=== PATIENT | male | born 1970 | race Two or more races ===

== ENCOUNTER → 2016-10-13 | Outpatient (CLI) | payer BC ==
[~2016-10-13] VITALS: Ht 175.3 cm; Wt 84.8 kg
[~2016-10-13] MED LIST: CYCLOBENZAPRINE5 MG ORAL; GLUCOPHAGE1000 MG ORAL; LOSARTAN POTAS100 MG ORAL; NORVASC10 MG ORAL; PAXIL CR37.5 MG ORAL; PRILOSEC OTC20 MG ORAL; TRAZODONE HCL300 MG ORAL
--- NOTE | 2016-10-13 14:15 | GI Initial Consult Note ---
History of Present Illness General Date patient seen: October 13, 2016 Time patient seen: 13:58 Reason for Consultation: CONSTIPATION Present Illness HPI 46 year old male presents today with new onset constipation x 2 months. States he takes Metamucil BID with minimal relief. In addition, the patient c/ o of blood stool. 25+ lbs intentional weight loss. Home Meds Reported Medications Trazodone Hcl (TRAZODONE HCL) Unknown Strength Tablet, ORAL BEDTIME Y, TAB 10/13/16 Cyclobenzaprine Hcl (CYCLOBENZAPRINE HCL) Unknown Strength Tablet, ORAL THREE TIMES A DAY, TAB 10/13/16 Omeprazole Magnesium (PRILOSEC OTC) Unknown Strength Tablet.dr, ORAL DAILY, TAB 10/13/16 Paroxetine Hcl (PAXIL CR) Unknown Strength Tab.er.24h, ORAL DAILY Y, #30 TAB 0 Refills 10/13/16 Amlodipine Besylate (Norvasc) Unknown Strength Tablet, ORAL DAILY, TAB 10/13/16 Losartan Potassium (LOSARTAN POTASSIUM) 100 Mg Tablet, 100 MG ORAL DAILY, TAB 10/13/16 Metformin Hcl (GLUCOPHAGE) Unknown Strength Tablet, ORAL DAILY, TAB 10/13/16 Med list reviewed/reconciled: Yes Allergies: Coded Allergies: No Known Allergies (Unverified , 10/13/16) Patient History History Provided By: Patient PMH Narrative GERD HTN Depression Sleep Disorder Hx of Gastric Ulcer since age 12 PSHx Back surgery 4-5 years ago Family History Narrative Father - heart disease Mother - DM, HTN, Ulcers Social History: Reports: alcohol use - quit 16 years ago, smoking - 1 pack daily x 30 years Review of Systems All Other Systems: negative except mentioned in HPI Physical Exam T 97.5 BP 131/68 P 71 94 RA HT 5'10 WT 187.6 lbs General Appearance: well appearing, no apparent distress, alert Head: normocephalic EENT: PERRL/EOMI, normal ENT inspection Neck: normal inspection, full range of motion, supple Respiratory: normal breath sounds, no respiratory distress Cardiovascular: normal rate Gastrointestinal: normal inspection, non tender, soft, normal bowel sounds Genitourinary: normal inspection, no CVA tenderness Musculoskeletal: normal inspection, back normal Neurologic: normal inspection, alert, oriented x3, responsive Psychiatric: normal inspection, judgement/insight normal, memory normal Skin: normal inspection, normal color, no rash, warm/dry Lymphatic: normal inspection, no adenopathy GI: Plan Problems: (1) GERD (gastroesophageal reflux disease) (2) Hx of gastric ulcer (3) HTN (hypertension) (4) Depression (5) Sleep disorder (6) Constipation Plan pt requires colonoscopy to evaluate new onset constipation/bloody stools and EGD / given hx of gastric ulcer. - will order breath test to r/o H. Pylori given history of . will schedule patient pending prior authorization Seen with Dr. Mcclure. Thank you for referring this patient. Maureen Griffiths N.P. October 13, 2016 14:15
[2016-10-13 15:44] VITALS: BP 131/68
== END | disposition home or self-care (01) ==
LOC: PAN 13:09
DX: K21.9 Gastro-esophageal reflux disease without esophagitis (principal); I10 Essential (primary) hypertension; K59.00 Constipation, unspecified; F33.9 Major depressive disorder, recurrent, unspecified; E11.9 Type 2 diabetes mellitus without complications; Z82.49 Family history of ischemic heart disease and other diseases of the circulatory system; F17.210 Nicotine dependence, cigarettes, uncomplicated; G47.9 Sleep disorder, unspecified
CPT/HCPCS: 99201

== ENCOUNTER 2017-01-12 08:10 | Day surgery (SDC) | payer BC ==
[2017-01-12] VITALS (8 sets, daily range): BP systolic 106–136; BP diastolic 64–79
[~2017-01-12] VITALS: Ht 175.3 cm; Wt 83.9 kg
--- NOTE | 2017-01-12 06:08 | Anethesia Preoperative Eval ---
Anesthesia Pre-op PMH/ROS General Date of Evaluation: Jan 12, 2017 Time of Evaluation: 06:06 Anesthesiologist: juan jose ASA Score: ASA 3 Mallampati Score Class I : Soft palate, uvula, fauces, pillars visible Class II: Soft palate, uvula, fauces visible Class III: Soft palate, base of uvula visible Class IV: Only hard plate visible Mallampati Classification: Class II Surgeon: ernie Diagnosis: gerd, constipation Surgical Procedure: egd/colonoscopy Anesthesia History: none Social History: current smoker Family History: no anesthesia problems Allergies: Coded Allergies: No Known Allergies (Unverified , 10/13/16) Medications: see eMAR Past Medical History Cardiovascular: Reports: HTN Gastrointestinal/Genitourinary: Reports: GERD, other - gi bleed Neurologic/Psychiatric: Reports: depression/anxiety Musculoskeletal/Integumentary: Reports: other - back pain Other: obesity Anesthesia Pre-op Phys. Exam Physician Exam Constitutional: NAD Neurologic: CN 2-12 intact Cardiovascular: RRR Respiratory: CTA Gastrointestinal: S/NT/ND Airway Exam Mallampati Score: Class II MO: full Neck: supple TMD: 2fb ROM: full Teeth: intact Anesthesia Pre-op A/P Studies Pre-op Studies: EKG - sinus bradycardia Risk Assessment & Plan Assessment: asa3 Plan: mac Status Change Before Surgery: No Pre-Antibiotics Drug: JONAS Harrison Jan 12, 2017 06:08
[2017-01-12] MEDS ORDERED: LOSARTAN POTAS100 MG ORAL (08:36)
[2017-01-12] MEDS ORDERED: PAXIL CR12.5 MG ORAL (08:36)
[2017-01-12] MEDS ORDERED: OMEPRAZOLE20 M2 ORAL (08:36)
[2017-01-12] MEDS ORDERED: TRAZODONE HCL100 MG ORAL (08:36)
[2017-01-12] MEDS ORDERED: NORCO 5-325 TA1 EACH ORAL (08:36)
[2017-01-12] MEDS ORDERED: METFORMIN HCL850 M1 ORAL (08:36)
[2017-01-12] MEDS ORDERED: AMLODIPINE BESY10 MG ORAL (08:36)
--- NOTE | 2017-01-12 09:12 | Pre-Procedure Note/Attestation ---
Pre-Procedure Note/Attestation Complete Prior to Procedure Planned Procedure: not applicable Procedure Narrative: EGD and colonoscopy Indications for Procedure Pre-Operative Diagnosis: gerd, abd pain, anemia Attestation I attest that I discussed the nature of the procedure; its benefits; risks and complications; and alternatives (and the risks and benefits of such alternatives ), prior to the procedure, with the patient (or the patient's legal guest services representative). I attest that, if there was a reasonable possibility of needing a blood transfusion, the patient (or the patient's legal guest services representative) was given the [facility] standardized written summary, pursuant to the Kenn Jorge Luis Blood Safety Act ([place] Health and Safety Code # 1645, as amended). I attest that I re-evaluated the patient just prior to the surgery and that there has been no change in the patient's H&P, except as documented below: ATUL ALEGRIA Jan 12, 2017 09:12
--- NOTE | 2017-01-12 09:13 | Short Stay Surgery H&P ---
History of Present Illness History of Present Illness Chief Complaint see recent consult note HPI Christiano Juarez is a 46 year old male who was admitted on for Gerd, Constipation Patient History Allergies: Coded Allergies: No Known Allergies (Unverified , 10/13/16) PAST MEDICAL HISTORY: Past Surgeries: Social History: Medication History Scheduled Amlodipine Besylate* (Amlodipine Besylate*), 10 MG ORAL DAILY, (Reported) Losartan Potassium (Losartan Potassium), 100 MG ORAL DAILY, (Reported) Metformin Hcl* (Metformin Hcl*), 850 MG ORAL DAILY, (Reported) Omeprazole (Omeprazole), 20 MG ORAL DAILY, (Reported) Paroxetine Hcl* (Paxil Cr*), 37.5 MG ORAL DAILY, (Reported) Trazodone Hcl* (Desyrel*), 100 MG ORAL BEDTIME, (Reported) Scheduled PRN Hydrocodone Bit/Acetaminophen 5-325* ([place] 5-325*), 1 TAB ORAL Q4H PRN for For Pain, (Reported) Physical Exam Vital Signs Last Vital Signs Date Time Temp Pulse Resp B/P Pulse Ox O2 Delivery O2 Flow Rate FiO2 01/12/17 08:50 97.5 58 15 136/76 98 Room Air Plan Attestation Are the patient's medical conditions optimized for surgery? ATUL ALEGRIA Jan 12, 2017 09:13
[2017-01-12] MEDS ORDERED: Midazolam 2mg/2ml Inj ONE ×2 (09:30→09:58)
[2017-01-12] MEDS ORDERED: Lidocaine 1% MPF 10mg/ml 5ml ONE (09:30)
[2017-01-12] MEDS ORDERED: Propofol 10mg/ml 20ml IV ONE (09:30)
--- NOTE | 2017-01-12 10:14 | Endoscopy Procedure Note ---
Endoscopy Procedure Note Indication for Procedure: GERD, constipation Procedures Performed: EGD, colonoscopy Operative Findings/Diagnosis: 3 polyps Specimen: yes Pt Tolerated Procedure Well: Yes Estimated Blood Loss: none Anesthesiologist: rosetta Anesthesia: MAC Implant(s) used?: No 50 yrs or older w/o bx or poly: No 10yrs. F/U not recommended: Yes If not recommended, why?: Above average risk 10 yrs. F/U needed: Yes 18 years or older w/prev. colo: No ATUL ALEGRIA Jan 12, 2017 10:14
--- NOTE | 2017-01-12 10:34 | Immediate Post-Op Evaluation ---
Immediate Post-Op Evalulation Immediate Post-Op Evalulation Procedure: egd/colonoscopy Date of Evaluation: Jan 12, 2017 Time of Evaluation: 10:33 IV Fluids: 600ml 0.9ns Blood Products: none Estimated Blood Loss: negligible Blood Pressure Systolic: 107 Blood Pressure Diastolic: 64 Pulse Rate: 53 Respiratory Rate: 18 O2 Sat by Pulse Oximetry: 100 Temperature (Fahrenheit): 97.4 Pain Score (1-10): 0 Nausea: No Vomiting: No Complications none Patient Status: awake, reacts, patent Hydration Status: adequate Drug: JONAS Harrison Jan 12, 2017 10:34
--- NOTE | 2017-01-12 10:37 | 48 Hour Post Anesthesia Eval ---
Post Anesthesia Evaluation Procedure: egd/colonoscopy Date of Evaluation: Jan 12, 2017 Time of Evaluation: 10:36 Blood Pressure Systolic: 107 0: 64 Pulse Rate: 53 Respiratory Rate: 18 Temperature (Fahrenheit): 97.4 O2 Sat by Pulse Oximetry: 100 Airway: patent Nausea: No Vomiting: No Pain Intensity: 0 Hydration Status: adequate Cardiopulmonary Status: stable Mental Status/LOC: patient returned to baseline Post-Anesthesia Complications: none Follow-up care needed: N/A JONAS BECK Jan 12, 2017 10:37
[2017-01-12] MEDS ORDERED: Hydromorphone 0.5mg/0.5ml inj IVP PRN (10:45)
[2017-01-12] MEDS ORDERED: Midazolam 2mg/2ml Inj IVP PRN (10:45)
[2017-01-12] MEDS ORDERED: DiphenhydrAMINE 50mg/ml Inj IVP PRN (10:45)
[2017-01-12] MEDS ORDERED: Atropine Inj 1mg/10ml Syr IV PRN (10:45)
--- NOTE | 2017-01-12 11:30 | Procedure Note ---
DATE OF PROCEDURE: 01/12/2017 SURGEON: Alessandro Blank M.D. PROCEDURE: Upper endoscopy with biopsy and colonoscopy with snare polypectomy. ANESTHESIOLOGIST: Tania Aragon M.D. INSTRUMENT: Olympus adult flexible endoscope and colonoscope. INDICATION: Chronic GERD, screening colonoscopy evaluation. REASON FOR PROCEDURE: The procedure, risks, benefits, and possible consequences, including hemorrhage, aspiration, perforation and infection, and alternative treatments, were explained to the patient/legal guardian by Dr. Alessandro Blank and the patient/legal guardian understood and accepted these risks. DESCRIPTION OF PROCEDURE: After informed consent was obtained and the patient was adequately sedated, Olympus upper endoscope was advanced from mouth and second portion of the duodenum and retroflexion was performed of the stomach. The patient has diffuse gastritis. Random biopsy from antrum was obtained to rule out H. pylori infection. The patient also has evidence of possible Gerda esophagitis. [place] biopsy from the distal esophagus was obtained. At this time, the upper endoscope was retrieved and the patient was turned over for colonoscopy. First, a rectal exam was performed, which was normal. Then, the scope was advanced from the rectum into the cecum, the appendix orifice, ileocecal valve, and upper quadrant palpation. Quality of prep was very good. This procedure was a little bit challenging given the patient has some kind of reaction to the anesthesia. He was shaking, making the procedure a little bit difficult. The patient had evidence of three polyps in this colonoscopy examination. The largest one in the transverse colon, pedunculated, measured roughly may be 1.5 cm, removed with the snare polypectomy technique. There was another polyp close to this one, smaller, less than 1 cm may be roughly about 7 mm removed with snare. There was a diminutive small polyp in the sigmoid colon measured roughly 4 to 5 mm removed with cold snare. There was no further colon polyp seen. Retroflexion of rectum showed evidence of internal hemorrhoids. The patient also has evidence of sigmoid diverticulosis, mild to moderate. SUMMARY FINDINGS: 1. Possible Gerda esophagitis, status post biopsy. 2. Gastritis, status post biopsy to rule out Helicobacter pylori infection. 3. A total of three colonic polyps removed, see above for details. 4. Diverticulosis. 5. Internal hemorrhoids. RECOMMENDATIONS: Follow up biopsies and treat accordingly. We will recommend repeat colonoscopy in three years given these three polyps. Alessandro Blank M.D. DR: ROSELYN JOB#: [id number] CC:
--- NOTE | 2017-01-14 16:32 | Cardiology Report ---
APPROVED REPORT EKG Measurement Heart [id number] Sinus bradycardia Early repolarization Otherwise normal ECG
== END 2017-01-12 11:30 | disposition home or self-care (01) ==
LOC: GAS 08:10
DX: Z12.11 Encounter for screening for malignant neoplasm of colon (principal); K59.00 Constipation, unspecified; D12.5 Benign neoplasm of sigmoid colon; D12.3 Benign neoplasm of transverse colon; K57.30 Diverticulosis of large intestine without perforation or abscess without bleeding; K64.8 Other hemorrhoids; K21.9 Gastro-esophageal reflux disease without esophagitis; K29.50 Unspecified chronic gastritis without bleeding; B96.81 Helicobacter pylori [H. pylori] as the cause of diseases classified elsewhere; B37.81 Candidal esophagitis; I10 Essential (primary) hypertension; F32.9 Major depressive disorder, single episode, unspecified; F41.9 Anxiety disorder, unspecified; E66.9 Obesity, unspecified; R00.1 Bradycardia, unspecified; M54.9 Dorsalgia, unspecified; F17.210 Nicotine dependence, cigarettes, uncomplicated; Z79.84 Long term (current) use of oral hypoglycemic drugs
CPT/HCPCS: 43239; 45385; 82962; 93005; J2250; J2704; 94003; 94150

== ENCOUNTER 2017-01-29 15:15 | Outpatient (CLI) | payer BC ==
[~2017-01-29 15:15] MED LIST changes: +AMLODIPINE BESY10 MG ORAL; +METFORMIN HCL850 M1 ORAL; +NORCO 5-325 TA1 EACH ORAL; +OMEPRAZOLE20 M2 ORAL; +PAXIL CR12.5 MG ORAL; +TRAZODONE HCL100 MG ORAL
--- NOTE | 2017-01-29 15:38 | GI Progress Note ---
Assessment/Plan Problems: (1) H. pylori infection ICD Codes: A04.8 - Other specified bacterial intestinal infections SNOMED: [id number] (2) Gerda esophagitis ICD Codes: B37.81 - Candidal esophagitis SNOMED: [id number] Status: stable Status Narrative Seen with Dr. Blank. Assessment/Plan S/P EGD/Colonoscopy SUMMARY FINDINGS reviewed with patient: 1. Possible Gerda esophagitis, status post biopsy. >> positive 2. Gastritis, status post biopsy to rule out Helicobacter pylori infection. >> positive 3. A total of three colonic polyps removed, see above for details. 4. Diverticulosis. 5. Internal hemorrhoids. RECOMMENDATIONS: Rx HP tx Rx Diflucan RTC prn repeat colon x 3 years Subjective Gastrointestinal/Abdominal: Reports: no symptoms Objective T 98.4 BP 123/67 P 85 97 RA General Appearance: no apparent distress, alert Cardiovascular: normal rate Respiratory/Chest: chest wall non-tender, lungs clear, normal breath sounds, no respiratory distress Abdominal Exam: normal bowel sounds, non tender, soft Genitourinary/Rectal: normal rectal exam Extremities: normal range of motion, non-tender Maureen Griffiths N.P. Jan 29, 2017 15:38
== END 2017-01-29 15:40 | disposition home or self-care (01) ==
LOC: PAN 15:15
DX: A04.8 Other specified bacterial intestinal infections (principal); B37.81 Candidal esophagitis; K57.90 Diverticulosis of intestine, part unspecified, without perforation or abscess without bleeding; K63.5 Polyp of colon; K64.8 Other hemorrhoids; K29.70 Gastritis, unspecified, without bleeding
CPT/HCPCS: 99211